=== PATIENT | female | born 1995 | race Two or more races ===

== ENCOUNTER 2021-07-16 10:05 | Observation (INO) | payer OTHER, MEDICAID ==
[~2021-07-16] VITALS: Ht 149.9 cm; Wt 66.2 kg
[2021-07-16] MEDS ORDERED: PREN-118 MT (15:48)
== END 2021-07-16 15:57 | disposition home or self-care (01) ==
LOC: 8 EST LDRP 10:05
PROVIDERS: ADMIT Obstetrics & Gynecology; ATTEND Obstetrics & Gynecology
DX: O26.893 Other specified pregnancy related conditions, third trimester (principal); R10.30 Lower abdominal pain, unspecified; O62.9 Abnormality of forces of labor, unspecified; Z3A.39 39 weeks gestation of pregnancy
CPT/HCPCS: 59025; 76815; 76818; G0378; 99281

== ENCOUNTER 2021-07-17 06:33 | Inpatient (IN) | payer MEDICAID, OTHER ==
[~2021-07-17] VITALS: Ht 149.9 cm; Wt 66.2 kg
[~2021-07-17 06:33] MED LIST: PREN-118 MT
[2021-07-17] MEDS ORDERED: METHYLERGONOVINE MALEATE 0.2 MG/ML IM PRN (07:30)
[2021-07-17] MEDS ORDERED: DEXT 5%/LR + PITOCIN 20UNITS/L 1,000 ML IV SCH (07:30)
[2021-07-17] MEDS ORDERED: LIDOCAINE HCL 1% 20ML VIAL (Pyxis) INJ INFIL SCH (07:30)
[2021-07-17] MEDS ORDERED: LACTATED RINGERS 1,000 ML IV SCH (07:42)
[2021-07-17 09:41] LABS: BASOPHILS % 0.2 % (0.0-2.0); CLARITY URINE CLEAR (CLEAR); COLOR URINE YELLOW (YELLOW); EOSINOPHILS % 0.1 % (0.0-5.0); HEMATOCRIT. 35.3 % (36.0-48.0); HEMOGLOBIN. 11.9 g/dL (12.0-16.0); KETONES URINE 3+ (NEGATIVE); LEUKOCYTE ESTERASE URINE TRACE (NEGATIVE); LYMPHOCYTES % 8.2 % (20.0-50.0); MEAN CORPUSCULAR HEMOGLOBIN 29.7 pg (28.0-32.0); MEAN CORPUSCULAR VOLUME 88.2 fL (81.0-99.0); MEAN PLATELET VOLUME 8.9 fl (7.4-10.4); NEUTROPHILS % 86.5 % (40.0-76.0); NITRITE URINE NEGATIVE (NEGATIVE); OCCULT BLOOD URINE 1+ (NEGATIVE); PLATELET 221 x1000/uL (130-400); PROTEIN URINE 1+ (NEGATIVE); RED CELL DISTRIBUTION WIDTH 15.8 % (11.6-14.6); SPECIFIC GRAVITY URINE 1.022 (1.005-1.030)
[2021-07-17 09:58] LABS: *COCAINE SCREEN URINE NEGATIVE (NEGATIVE); METHADONE URINE SCREEN NEGATIVE (NEGATIVE)
[2021-07-17 09:59] LABS: *AMPHETAMINES SCREEN URINE NEGATIVE (NEGATIVE); *BARBITURATES SCREEN URINE NEGATIVE (NEGATIVE); *BENZODIAZEPINES SCREEN URINE NEGATIVE (NEGATIVE); CANNABINOID URINE SCREEN NEGATIVE (NEGATIVE); OPIATES URINE SCREEN NEGATIVE (NEGATIVE); PHENCYCLIDINE URINE SCREEN NEGATIVE (NEGATIVE)
[2021-07-17 10:56] LABS: INR 0.9; PARTIAL THROMBOPLASTIN TIME 30.6 sec (23.4-31.0); PROTHROMBIN TIME 10.1 sec (9.6-11.0)
[2021-07-17] MEDS ORDERED: ROPIVACAINE HCL/PF EPIDURAL 200 ML EP SCH (11:00)
[2021-07-17 11:30] LABS: HEPATITIS B SURFACE ANTIGEN NEGATIVE
[2021-07-17] MEDS ORDERED: BUTORPHANOL TARTRATE 2 MG/ML VIAL IV PRN (14:15)
[2021-07-18 01:15] VITALS: BP 126/71
[2021-07-18] MEDS ORDERED: ACETAMINOPHEN WITH CODEINE 300/30MG TABLET PO PRN (01:15)
[2021-07-18] MEDS ORDERED: IBUPROFEN 400MG TABLET PO PRN (01:15)
[2021-07-18] MEDS ORDERED: BENZOCAINE/LANOLIN/ALOE VERA SPRAY TOP PRN (01:15)
[2021-07-18] MEDS ORDERED: BISACODYL 10MG SUPP PR PRN (01:15)
[2021-07-18] MEDS ORDERED: HEMORRHOIDAL SUPP PR PRN (01:15)
[2021-07-18] MEDS ORDERED: DIPHENHYDRAMINE 25MG CAPSULE PO PRN (01:15)
[2021-07-18] MEDS ORDERED: IBUPROFEN 800MG TABLET PO PRN (01:15)
[2021-07-18] MEDS ORDERED: RHO(D) IMMUNE GLOBULIN 300 MCG/SYR IM PRN (01:15)
[2021-07-18] MEDS ORDERED: GLYCERIN/WITCH HAZEL LEAF MEDICATED PAD TOP PRN (01:15)
[2021-07-18 01:45] VITALS: BP 110/67
[2021-07-18] MEDS ORDERED: DEXT 5%/LR + PITOCIN 20UNITS/L 1,000 ML IV SCH (02:00)
[2021-07-18 04:00] VITALS: BP 107/55
[2021-07-18 07:12] LABS: HEMATOCRIT. 31.6 % (36.0-48.0); HEMOGLOBIN. 10.3 g/dL (12.0-16.0); MEAN CORPUSCULAR HEMOGLOBIN 29.3 pg (28.0-32.0); MEAN PLATELET VOLUME 8.9 fl (7.4-10.4); PLATELET 211 x1000/uL (130-400); RED BLOOD CELL COUNT 3.51 mill/uL (4.2-5.4)
[2021-07-18 07:30] VITALS: BP 99/57
[2021-07-18] MEDS: SIMETHICONE 80MG TABLET CHEW PO SCH ×4 (08:50→21:24)
[2021-07-18] MEDS: MAGNESIUM/ALUMINUM HYDROXIDE/SIMETHICONE 30ML UDC PO SCH ×4 (08:50→21:24)
[2021-07-18] MEDS ORDERED: PRENATAL VIT/FE FUMARATE/FA TABLET PO SCH (09:00)
[2021-07-18 11:19] LABS: PLATELET ESTIMATE NORMAL
[2021-07-18 16:04] VITALS: BP 97/50
[2021-07-18 20:00] VITALS: BP 102/61
[2021-07-18] MEDS ORDERED: DOCUSATE SODIUM 100MG CAPSULE PO SCH (21:00)
[2021-07-19 04:00] VITALS: BP 101/69
[2021-07-19] MEDS ORDERED: IBUP-2030 PO (06:19)
[2021-07-19] MEDS ORDERED: FERROUS SULFATE 325MG TABLET PO SCH (07:30)
[2021-07-19] MEDS: MAGNESIUM/ALUMINUM HYDROXIDE/SIMETHICONE 30ML UDC PO SCH (07:30)
[2021-07-19] MEDS: SIMETHICONE 80MG TABLET CHEW PO SCH (07:32)
[2021-07-19 07:41] VITALS: BP 106/68
== END 2021-07-19 15:41 | disposition home or self-care (01) | DRG 560 ==
LOC: OBSVTOIN 06:33 → 8 EST LDRP 06:33 → 8EST 07-18 00:43
PROVIDERS: ADMIT Obstetrics & Gynecology; ATTEND Obstetrics & Gynecology
PROC: 10E0XZZ Delivery of Products of Conception, External Approach (ICD-10-PCS; principal; 2021-07-17)
PROC: 3E0R3BZ Introduction of Anesthetic Agent into Spinal Canal, Percutaneous Approach (ICD-10-PCS; 2021-07-17)
PROC: 00HU33Z Insertion of Infusion Device into Spinal Canal, Percutaneous Approach (ICD-10-PCS; 2021-07-17)
DX: O48.0 Post-term pregnancy (principal); Z37.0 Single live birth; Z20.822 Contact with and (suspected) exposure to COVID-19; Z3A.41 41 weeks gestation of pregnancy
CPT/HCPCS: 36415; 76805; 76818; 80305; 81003; 85025; 86592; 86703; 86762; 86850; 86900; 87340; 87426; 99281; G0378; J0595; J2590; J3490